=== PATIENT | male | born 1955 | race Caucasian/White ===

== ENCOUNTER 2022-08-26 14:21 | Emergency (ER) | payer OTHER ==
[~2022-08-26] VITALS: Ht 167.6 cm; Wt 59.0 kg
--- NOTE | 2022-08-26 14:45 | NUR ---
RECEIVED PT 67 YRS MALE FROM HOME CAME BY CANICC/O N/V FOR 2 DAY NO PAIN
--- NOTE | 2022-08-26 15:00 | NUR ---
SEEN BY DR MAYA
[2022-08-26] MEDS ORDERED: FAMOTIDINE/PF INJ 20 MG/2 ML VIAL IV ONE ×2 (15:30→15:36)
[2022-08-26] MEDS ORDERED: IV NS 0.9% 1,000 ML BAG IV ONE (15:30)
[2022-08-26] MEDS ORDERED: ONDANSETRON HCL/PF 4 MG/2 ML VIAL IVP ONE (15:30)
[2022-08-26] MEDS ORDERED: ONDANSETRON HCL/PF 4 MG/2 ML VIAL ONE ×2 (15:36→18:56)
[2022-08-26 15:51] LABS: BASOPHILS # (AUTO) 0.1 K/uL (0.0-0.2); BASOPHILS % (AUTO) 0.8 % (0.0-2.0); HEMATOCRIT 37 % (39-51); HEMOGLOBIN 11.8 g/dL (13.5-17.5); LYMPHOCYTES # (AUTO) 2.6 K/uL (0.8-4.8); LYMPHOCYTES % (AUTO) 23.2 % (20.0-44.0); MEAN CORPUSCULAR HGB CONC 32 g/dl (31.0-36.0); MEAN CORPUSCULAR VOLUME 94 fL (80-96); MONOCYTES # (AUTO) 0.8 K/uL (0.1-1.30); MONOCYTES % (AUTO) 7.2 % (2.0-12.0); NEUTROPHILS # (AUTO) 7.5 K/uL (1.8-8.9); NEUTROPHILS % (AUTO) 67.8 % (43.0-81.0); PLATELET COUNT (AUTO) 138 K/uL (150-450)
[2022-08-26 16:10] LABS: ALBUMIN 3.6 g/dL (3.4-5.0); BILIRUBIN,TOTAL 1.9 mg/dL (0.2-1.0); CALCIUM, SERUM 9.1 mg/dL (8.5-10.1); POTASSIUM 3.4 mmol/L (3.5-5.1); TOTAL PROTEIN, SERUM 7.7 g/dL (6.4-8.2)
--- NOTE | 2022-08-26 16:12 | NUR ---
INSERTED ANGOCATHETER G 20 ON RT WRIST
--- NOTE | 2022-08-26 16:47 | NUR ---
RESTING AT THIS TIME
--- NOTE | 2022-08-26 18:15 | NUR ---
PO INTACKE STETED WITH WATER AND JUCES
--- NOTE | 2022-08-26 18:55 | NUR ---
UA SENT TO LAB
[2022-08-26] MEDS: ONDANSETRON HCL/PF - ER 4 MG/2 ML VIAL IV ONE ×2 (18:56→18:57)
--- NOTE | 2022-08-26 19:15 | NUR ---
Received pt awake, alert and able to follow commands. Pt is able to tolerate some juices and denies nausea or vomiting.
--- NOTE | 2022-08-26 19:20 | NUR ---
HAND OFF MARTA AG
--- NOTE | 2022-08-26 19:30 | NUR ---
PT TORATED PO INTACK DINESES N/V
--- NOTE | 2022-08-26 19:35 | NUR ---
DR. MAYA NOTEFED PT TOLORATED PO INTACK
[2022-08-26] MEDS ORDERED: ONDA4TAB11 PO (19:40)
[2022-08-26] MEDS ORDERED: PANT40TA49 PO (19:40)
[2022-08-26 20:04] VITALS: BP 124/54
--- NOTE | 2022-08-26 20:04 | NUR ---
Patient discharged to home in stable condition. Written and verbal after care instructions given. Patient verbalizes understanding of instruction.
[2022-08-26 21:03] LABS: BILIRUBIN,URINE 1+ (NEGATIVE); COLOR,URINE YELLOW (YELLOW); LEUKOCYTE ESTERASE ,URINE NEGATIVE (NEGATIVE); NITRITE, URINE NEGATIVE (NEGATIVE); PROTEIN,URINE TRACE mg/dl (NEGATIVE); UGLUCOSE NEGATIVE (NEGATIVE)
[2022-08-26 21:30] LABS: BACTERIA,URINE None seen /HPF (None Seen); MUCUS,URINE Few /LPF (None Seen); RBC,URINE 0-2 /HPF (0-2); WBC,URINE 0-2 /HPF (0-3)
== END 2022-08-26 20:05 | disposition home or self-care (01) ==
LOC: ER 16:00
DX: K29.70 Gastritis, unspecified, without bleeding (principal); R11.2 Nausea with vomiting, unspecified; I10 Essential (primary) hypertension; Z95.1 Presence of aortocoronary bypass graft; Z60.2 Problems related to living alone
CPT/HCPCS: 99283; 96374; 96361; 96375; 96376; 85025; 80048; 83690; 80076; 81001; 36415; J3490; J2405 ×3; J7030